=== PATIENT | female | born 1980 | race Caucasian/White ===

== ENCOUNTER 2017-03-06 07:57 | Inpatient (IN) | payer MEDICAID, OTHER ==
[2017-03-06] VITALS (44 sets, daily range): BP systolic 53–116; BP diastolic 23–72
[~2017-03-06] VITALS: Ht 154.9 cm; Wt 55.3 kg
[2017-03-06] MEDS ORDERED: SODIUM CHLORIDE 0.9% 1,000 ML IV ONE (08:13)
[2017-03-06 08:34] LABS: BG BASE EXCESS -5.2 mmol/L (-2.0-2.0); BG CARBOXYHEMOGLOBIN 0.3 % (0.5-1.5); BG DEOXYHEMOGLOBIN 1.3 % (0.0-5.0); BG FRACTION INSPIRED OXYGEN 32; BG HCO3 ACT 14.4 mmol/L (22.0-26.0); BG METHEMOGLOBIN 0.3 % (0.0-1.5); BG OXYGEN SATURATION 98.7 % (92.0-98.5); BG OXYHEMOGLOBIN 98.1 % (94.0-97.0); BG PCO2 17.4 mmHg (35.0-45.0); BG PH 7.537 (7.350-7.450); BG PO2 165.9 mmHg (75.0-100.0); BG SAMPLE SITE RIGHT BRACHIAL; BG TOTAL HEMOGLOBIN 14.2 g/dL (12.0-18.0); BG VENT MODE NASAL CANNULA
[2017-03-06 08:54] LABS: CARBON DIOXIDE 21 mEq/L (21-32); CHLORIDE 67 mEq/L (98-107); ETHANOL BLOOD < 10 mg/dL
[2017-03-06 08:56] LABS: AMMONIA 36 uMol/L (<32)
[2017-03-06] MEDS ORDERED: SODIUM CHLORIDE 3% 500ML IV SOLN IV ONE (09:15)
[2017-03-06 09:23] LABS: HCG SCREEN NEGATIVE
[2017-03-06 09:31] LABS: BASOPHILS % 1.3 % (0.0-2.0); EOSINOPHILS % 1.4 % (0.0-5.0); HEMATOCRIT. 37.9 % (36.0-48.0); HEMOGLOBIN. 13.8 g/dL (12.0-16.0); LYMPHOCYTES % 24.2 % (20.0-50.0); MEAN CORPUSCULAR HEMOGLOBIN 27.6 pg (28.0-32.0); MEAN CORPUSCULAR VOLUME 75.8 fL (81.0-99.0); MEAN PLATELET VOLUME 9.3 fl (7.4-10.4); MONOCYTES % 6.7 % (2.0-8.0); NEUTROPHILS % 66.4 % (40.0-76.0); PLATELET 183 x1000/uL (130-400); RED BLOOD CELL COUNT 5.01 mill/uL (4.2-5.4); RED CELL DISTRIBUTION WIDTH 13.9 % (11.6-14.6)
[2017-03-06] MEDS ORDERED: SODIUM CHLORIDE 3% 500 ML IV ONE (10:30)
[2017-03-06] MEDS ORDERED: INSULIN REGULAR (HUMULIN R) 300UNITS/3ML IV ONE (10:30)
[2017-03-06] MEDS ORDERED: FUROSEMIDE 100MG/10ML VIAL IV STA (10:30)
[2017-03-06] MEDS ORDERED: SODIUM BICARBONATE 8.4% 1 MEQ/ML 50ML SYR IV ONE (10:30)
[2017-03-06] MEDS ORDERED: SODIUM POLYSTYRENE SULFONATE 15 G/60 ML BOT PO ONE (10:30)
[2017-03-06] MEDS ORDERED: DEXTROSE 50% WATER 50ML SYRINGE IV ONE ×3 (10:30→16:45)
[2017-03-06] MEDS ORDERED: ALBUTEROL (0.083%) 2.5MG/3ML NEB HHN ONE (10:30)
[2017-03-06 10:52] LABS: INR 1.3; PROTHROMBIN TIME 13.9 sec (9.4-11.6)
[2017-03-06 11:02] LABS: T4 FREE 2.03 ng/dL (0.76-1.46)
[2017-03-06 11:10] LABS: CLARITY URINE CLEAR (CLEAR); COLOR URINE DARK YELLOW (YELLOW); GLUCOSE URINE NEGATIVE (NEGATIVE); KETONES URINE TRACE (NEGATIVE); LEUKOCYTE ESTERASE URINE NEGATIVE (NEGATIVE); NITRITE URINE NEGATIVE (NEGATIVE); OCCULT BLOOD URINE 2+ (NEGATIVE); PH URINE 5.5 (4.5-8.0); PROTEIN URINE 1+ (NEGATIVE); SPECIFIC GRAVITY URINE 1.024 (1.005-1.030)
[2017-03-06 11:33] LABS: SODIUM URINE RANDOM 28 mEq/L
[2017-03-06 11:42] LABS: *AMPHETAMINES SCREEN URINE NEGATIVE (NEGATIVE); *BARBITURATES SCREEN URINE NEGATIVE (NEGATIVE); *BENZODIAZEPINES SCREEN URINE NEGATIVE (NEGATIVE); *COCAINE SCREEN URINE NEGATIVE (NEGATIVE); CANNABINOID URINE SCREEN NEGATIVE (NEGATIVE); METHADONE URINE SCREEN NEGATIVE (NEGATIVE); OPIATES URINE SCREEN NEGATIVE (NEGATIVE); PHENCYCLIDINE URINE SCREEN NEGATIVE (NEGATIVE)
[2017-03-06] MEDS ORDERED: LORAZEPAM 2MG/ML CPJ IV PRN (12:00)
[2017-03-06] MEDS ORDERED: ONDANSETRON HCL 4MG/2ML VIAL IV PRN (12:00)
[2017-03-06] MEDS ORDERED: IPRATROPIUM/ALBUTEROL 0.5-3(2.5)MG/3ML NEB INH PRN (12:00)
[2017-03-06] MEDS ORDERED: NA PHOS,M-B/NA PHOS,DI-BA ENEMA 118ML PR PRN (12:00)
[2017-03-06] MEDS ORDERED: MAGNESIUM/ALUMINUM HYDROXIDE/SIMETHICONE 30ML UDC PO PRN (12:00)
[2017-03-06] MEDS ORDERED: DOCUSATE SODIUM 100MG CAPSULE PO PRN (12:00)
[2017-03-06] MEDS ORDERED: CLONIDINE 0.1MG TABLET PO PRN (12:00)
[2017-03-06] MEDS ORDERED: ZOLPIDEM TARTRATE 5MG TABLET PO PRN (12:00)
[2017-03-06 12:09] LABS: CREATINE KINASE MB FRACTION 480.1 ng/mL (0.5-3.6)
[2017-03-06] MEDS ORDERED: LIDOCAINE HCL 1% 20ML VIAL (Pyxis) INJ ONE (13:45)
[2017-03-06] MEDS ORDERED: SODIUM BICARBONATE 4% (2.4MEQ) 5ML VIAL IV ONE (13:45)
[2017-03-06] MEDS: HYDRALAZINE HCL 50MG TABLET PO SCH ×2 (14:00→21:02)
[2017-03-06 14:49] LABS: BG BASE EXCESS -2.3 mmol/L (-2.0-2.0); BG CARBOXYHEMOGLOBIN 0.1 % (0.5-1.5); BG DEOXYHEMOGLOBIN 2.6 % (0.0-5.0); BG FRACTION INSPIRED OXYGEN 28; BG HCO3 ACT 19.1 mmol/L (22.0-26.0); BG METHEMOGLOBIN 0.3 % (0.0-1.5); BG OXYGEN SATURATION 97.4 % (92.0-98.5); BG PCO2 24.2 mmHg (35.0-45.0); BG PH 7.515 (7.350-7.450); BG PO2 104.2 mmHg (75.0-100.0); BG SAMPLE SITE RIGHT BRACHIAL; BG TOTAL HEMOGLOBIN 12.2 g/dL (12.0-18.0); BG VENT MODE NASAL CANNULA
[2017-03-06 14:53] LABS: AMYLASE 162 IU/L (25-115); CARBON DIOXIDE 18 mEq/L (21-32); CHLORIDE 74 mEq/L (98-107); PHOSPHORUS 5.3 mg/dL (2.5-4.9)
[2017-03-06 15:02] LABS: HEPATITIS B SURFACE ANTIGEN NEGATIVE
[2017-03-06 15:24] LABS: BASOPHILS % 0.3 % (0.0-2.0); EOSINOPHILS % 0.6 % (0.0-5.0); LYMPHOCYTES % 15.8 % (20.0-50.0); MEAN CORPUSCULAR HEMOGLOBIN 27.5 pg (28.0-32.0); MEAN CORPUSCULAR VOLUME 74.9 fL (81.0-99.0); MEAN PLATELET VOLUME 9.2 fl (7.4-10.4); MONOCYTES % 3.6 % (2.0-8.0); NEUTROPHILS % 79.7 % (40.0-76.0); PLATELET 151 x1000/uL (130-400); RED BLOOD CELL COUNT 5.07 mill/uL (4.2-5.4); RED CELL DISTRIBUTION WIDTH 14.1 % (11.6-14.6)
[2017-03-06 15:30] LABS: HEPATITIS B CORE AB IGM NEGATIVE
[2017-03-06] MEDS ORDERED: SODIUM POLYSTYRENE SULFONATE 15 G/60 ML BOT PO NR (16:15)
[2017-03-06] MEDS ORDERED: SODIUM CHLORIDE 0.9% 500 ML IV NR ×2 (16:15)
[2017-03-06] MEDS ORDERED: SODIUM BICARBONATE 8.4% 1 MEQ/ML 50ML SYR IV NR (16:45)
[2017-03-06] MEDS ORDERED: DEXTROSE 50% WATER 50ML SYRINGE IV PRN (16:45)
[2017-03-06] MEDS ORDERED: INSULIN REGULAR (HUMULIN R) 300UNITS/3ML SUBCUT ONE (16:45)
[2017-03-06] MEDS ORDERED: CALCIUM CHLORIDE 1GM/10ML SYR IV NR (16:45)
[2017-03-06] MEDS ORDERED: INSULIN REGULAR (HUMULIN R) 300UNITS/3ML IV NR (17:00)
[2017-03-06] MEDS ORDERED: SODIUM CHLORIDE 3% 500ML IV SOLN IV NR (18:00)
[2017-03-06] MEDS ORDERED: SODIUM CHLORIDE 3% 500 ML IV NR (18:00)
[2017-03-06] MEDS ORDERED: SODIUM CHLORIDE 23.4% 154 MEQ in DEXT 10% WATER 961.5 ML IV SCH ×3 (18:00)
[2017-03-06] MEDS ORDERED: ALPR-392 PO (18:05)
[2017-03-06] MEDS ORDERED: ONDA4TAB5 PO (18:05)
[2017-03-06] MEDS ORDERED: NOREPINEPHRINE 8 MG in DEXT 5% WATER 242 ML IV PRN (18:30)
[2017-03-06] MEDS ORDERED: ENOXAPARIN 60MG/0.6ML SYR SUBCUT SCH (20:00)
[2017-03-06] MEDS: NOREPINEPHRINE 8 MG in SODIUM CHLORIDE 0.9% 242 ML IV PRN (23:41)
[2017-03-07] VITALS (92 sets, daily range): BP systolic 75–124; BP diastolic 34–89
[2017-03-07] MEDS ORDERED: DEXTROSE 5% WATER 1,000 ML IV SCH (00:15)
[2017-03-07] MEDS: PHENYLEPHRINE 20 MG in DEXT 5% WATER 248 ML IV PRN ×2 (01:59→04:45)
[2017-03-07] MEDS: NOREPINEPHRINE 8 MG in SODIUM CHLORIDE 0.9% 242 ML IV PRN ×3 (04:04→13:50)
[2017-03-07] MEDS: HYDRALAZINE HCL 50MG TABLET PO SCH ×3 (06:00→22:00)
[2017-03-07] MEDS: PHENYLEPHRINE 40 MG in DEXT 5% WATER 246 ML IV PRN ×3 (07:07→13:41)
[2017-03-07 07:19] LABS: AMMONIA 65 uMol/L (<32)
[2017-03-07 07:43] LABS: BG BASE EXCESS -6.1 mmol/L (-2.0-2.0); BG CARBOXYHEMOGLOBIN 0.8 % (0.5-1.5); BG DEOXYHEMOGLOBIN 1.2 % (0.0-5.0); BG FRACTION INSPIRED OXYGEN 32; BG HCO3 ACT 15.7 mmol/L (22.0-26.0); BG METHEMOGLOBIN 0.2 % (0.0-1.5); BG OXYGEN SATURATION 98.8 % (92.0-98.5); BG OXYHEMOGLOBIN 97.8 % (94.0-97.0); BG PCO2 22.8 mmHg (35.0-45.0); BG PH 7.456 (7.350-7.450); BG PO2 148.2 mmHg (75.0-100.0); BG SAMPLE SITE LEFT BRACHIAL; BG TOTAL HEMOGLOBIN 13.9 g/dL (12.0-18.0); BG VENT MODE NASAL CANNULA
[2017-03-07 07:43] LABS: CARBON DIOXIDE 15 mEq/L (21-32); CHLORIDE 89 mEq/L (98-107); PHOSPHORUS 2.4 mg/dL (2.5-4.9)
[2017-03-07 07:47] LABS: INR 2.1; PARTIAL THROMBOPLASTIN TIME 40.1 sec (23.4-31.0); PROTHROMBIN TIME 21.8 sec (9.4-11.6)
[2017-03-07] MEDS ORDERED: VASOPRESSIN 10 UNIT in SODIUM CHLORIDE 0.9% 99.5 ML IV SCH (09:00)
[2017-03-07 09:04] LABS: BASOPHILS % 0.5 % (0.0-2.0); EOSINOPHILS % 0.6 % (0.0-5.0); HEMATOCRIT. 38.6 % (36.0-48.0); HEMOGLOBIN. 13.7 g/dL (12.0-16.0); LYMPHOCYTES % 10.8 % (20.0-50.0); MEAN CORPUSCULAR HEMOGLOBIN 27.7 pg (28.0-32.0); MEAN CORPUSCULAR VOLUME 78.2 fL (81.0-99.0); MEAN PLATELET VOLUME 9.6 fl (7.4-10.4); NEUTROPHILS % 84.1 % (40.0-76.0); PLATELET 139 x1000/uL (130-400); RED BLOOD CELL COUNT 4.94 mill/uL (4.2-5.4); RED CELL DISTRIBUTION WIDTH 14.3 % (11.6-14.6)
[2017-03-07] MEDS: EPINEPHRINE 1 MG in SODIUM CHLORIDE 0.9% 249 ML IV PRN ×3 (09:10→16:40)
[2017-03-07] MEDS: DEXT 5%/0.9% NACL 1,000 ML IV SCH (09:15)
[2017-03-07] MEDS ORDERED: LACTULOSE 20G/30ML UDC PO PRN (09:30)
[2017-03-07] MEDS ORDERED: COSYNTROPIN 0.25MG/ML VIAL IV NR (10:30)
[2017-03-07] MEDS ORDERED: MAGNESIUM 2 G PREMIX 50 ML IV NR (10:30)
[2017-03-07] MEDS: CITRIC ACID/SODIUM CITRATE SOLN 30ML UDC PO SCH ×2 (10:58→17:05)
[2017-03-07] MEDS: FAMOTIDINE 20MG/2ML VIAL IV SCH (10:59)
[2017-03-07] MEDS ORDERED: VANCOMYCIN 1 G PREMIX 200 ML IV SCH ×2 (12:00→14:00)
[2017-03-07] MEDS: PIPERACILLIN/TAZ 3.375G PREMIX 50 ML IV SCH ×3 (12:01→22:33)
[2017-03-07 12:58] LABS: CREATINE KINASE MB FRACTION 55.7 ng/mL (0.5-3.6)
[2017-03-07 13:01] LABS: TROPONIN I 0.43 ng/mL (0.00-0.04)
[2017-03-07] MEDS: LACTULOSE 20G/30ML UDC PO SCH ×2 (13:52→22:28)
[2017-03-07] MEDS: HYDROCORTISONE SOD SUCCINATE 100 MG/2 ML VIAL IV SCH ×2 (13:52→22:28)
[2017-03-07 15:07] LABS: INR 2.9; PROTHROMBIN TIME 30.3 sec (9.4-11.6)
[2017-03-07 15:28] LABS: HEPATITIS A AB IGM NEGATIVE (NEGATIVE)
[2017-03-07] MEDS ORDERED: PHENYLEPHRINE 80 MG in SODIUM CHLORIDE 0.9% 500 ML IV PRN (15:30)
[2017-03-07] MEDS ORDERED: PHENYLEPHRINE 80 MG in SODIUM CHLORIDE 0.9% 492 ML IV PRN (15:45)
[2017-03-07] MEDS ORDERED: SODIUM CHLORIDE 0.9% IV PRN (16:45)
[2017-03-07] MEDS ORDERED: NOREPINEPHRINE IV PRN (16:45)
[2017-03-07] MEDS ORDERED: NOREPINEPHRINE 32 MG in SODIUM CHLORIDE 0.9% 468 ML IV PRN (17:00)
[2017-03-08] VITALS (70 sets, daily range): BP systolic 94–159; BP diastolic 34–99
[2017-03-08] MEDS ORDERED: VANCOMYCIN 750 MG PREMIX 150 ML IV SCH ×2 (02:00)
[2017-03-08] MEDS: DEXT 5%/0.9% NACL 1,000 ML IV SCH ×2 (03:01→17:57)
[2017-03-08] MEDS: PIPERACILLIN/TAZ 3.375G PREMIX 50 ML IV SCH ×3 (05:30→17:56)
[2017-03-08] MEDS: HYDRALAZINE HCL 50MG TABLET PO SCH (05:31)
[2017-03-08 05:58] LABS: HEMATOCRIT. 38.3 % (36.0-48.0); HEMOGLOBIN. 13.1 g/dL (12.0-16.0); MEAN CORPUSCULAR HEMOGLOBIN 27.2 pg (28.0-32.0); MEAN CORPUSCULAR VOLUME 79.4 fL (81.0-99.0); PLATELET 94 x1000/uL (130-400); RED BLOOD CELL COUNT 4.82 mill/uL (4.2-5.4); RED CELL DISTRIBUTION WIDTH 14.4 % (11.6-14.6)
[2017-03-08] MEDS: LACTULOSE 20G/30ML UDC PO SCH (06:36)
[2017-03-08] MEDS: HYDROCORTISONE SOD SUCCINATE 100 MG/2 ML VIAL IV SCH ×3 (07:54→21:45)
[2017-03-08] MEDS: FAMOTIDINE 20MG/2ML VIAL IV SCH (09:36)
[2017-03-08] MEDS ORDERED: KCL 20MEQ/100ML PREMIX 100 ML IV SCH (10:00)
[2017-03-08 10:42] LABS: PLATELET ESTIMATE DECREASED
[2017-03-08 11:39] LABS: PROTHROMBIN TIME 20.9 sec (9.4-11.6)
[2017-03-08] MEDS: CITRIC ACID/SODIUM CITRATE SOLN 30ML UDC PO SCH ×2 (11:44→17:56)
[2017-03-08 12:34] LABS: AMMONIA 13 uMol/L (<32)
[2017-03-08] MEDS: VANCOMYCIN 500 MG PREMIX 100 ML IV SCH ×2 (14:37→21:41)
[2017-03-09] VITALS (47 sets, daily range): BP systolic 92–144; BP diastolic 54–82
[2017-03-09] MEDS: PIPERACILLIN/TAZ 3.375G PREMIX 50 ML IV SCH ×5 (00:12→23:44)
[2017-03-09] MEDS: HYDROCORTISONE SOD SUCCINATE 100 MG/2 ML VIAL IV SCH ×3 (05:13→21:35)
[2017-03-09] MEDS: VANCOMYCIN 500 MG PREMIX 100 ML IV SCH ×3 (05:13→21:35)
[2017-03-09 06:31] LABS: AMMONIA 47 uMol/L (<32)
[2017-03-09 06:41] LABS: CARBON DIOXIDE 21 mEq/L (21-32); CHLORIDE 98 mEq/L (98-107); PHOSPHORUS 1.3 mg/dL (2.5-4.9)
[2017-03-09 07:29] LABS: HEMATOCRIT. 24.5 % (36.0-48.0); HEMOGLOBIN. 8.8 g/dL (12.0-16.0); MEAN CORPUSCULAR VOLUME 78.2 fL (81.0-99.0); MEAN PLATELET VOLUME 8.9 fl (7.4-10.4); RED BLOOD CELL COUNT 3.13 mill/uL (4.2-5.4)
[2017-03-09 07:57] LABS: PLATELET 39 x1000/uL (130-400)
[2017-03-09] MEDS ORDERED: POTASSIUM ACETATE 40 MEQ in SODIUM CHLORIDE 0.9% 1,000 ML IV SCH (08:15)
[2017-03-09] MEDS ORDERED: POTASSIUM CHLORIDE 20MEQ/PACKET PO SCH (08:15)
[2017-03-09] MEDS: CITRIC ACID/SODIUM CITRATE SOLN 30ML UDC PO SCH (08:30)
[2017-03-09] MEDS: FAMOTIDINE 20MG/2ML VIAL IV SCH (08:34)
[2017-03-09 09:21] LABS: HEMATOCRIT. 24.9 % (36.0-48.0); HEMOGLOBIN. 8.9 g/dL (12.0-16.0); MEAN CORPUSCULAR HEMOGLOBIN 27.7 pg (28.0-32.0); MEAN CORPUSCULAR VOLUME 77.8 fL (81.0-99.0); MEAN PLATELET VOLUME 8.7 fl (7.4-10.4); RED CELL DISTRIBUTION WIDTH 14.4 % (11.6-14.6)
[2017-03-09 09:24] LABS: PLATELET 42 x1000/uL (130-400)
[2017-03-09] MEDS ORDERED: POTASSIUM PHOS,M-BASIC-D-BASIC 30 MMOL in SODIUM CHLORIDE 0.9% 500 ML IV SCH (09:30)
[2017-03-09 10:20] LABS: PLATELET ESTIMATE MARKEDLY DECREASED
[2017-03-09 10:23] LABS: PLATELET ESTIMATE MARKEDLY DECREASED
[2017-03-09] MEDS: POTASSIUM CHLORIDE INJ 40 MEQ in SODIUM CHLORIDE 0.9% 1,000 ML IV SCH (10:27)
[2017-03-09] MEDS: LACTULOSE 20G/30ML UDC PO SCH (11:31)
[2017-03-09 12:17] LABS: INR 1.2
[2017-03-09 15:32] LABS: HEMATOCRIT. 26.7 % (36.0-48.0); HEMOGLOBIN. 9.2 g/dL (12.0-16.0); MEAN CORPUSCULAR HEMOGLOBIN 27.4 pg (28.0-32.0); MEAN CORPUSCULAR VOLUME 80.1 fL (81.0-99.0); RED BLOOD CELL COUNT 3.34 mill/uL (4.2-5.4); RED CELL DISTRIBUTION WIDTH 14.5 % (11.6-14.6)
[2017-03-09 15:35] LABS: PLATELET 41 x1000/uL (130-400)
[2017-03-09 16:03] LABS: PLATELET ESTIMATE MARKEDLY DECREASED
[2017-03-09] MEDS ORDERED: TUBERCULIN,PURIF.PROT.DERIV. 5 TU/0.1 ML SYR ID ONE (23:00)
[2017-03-10] VITALS (31 sets, daily range): BP systolic 87–138; BP diastolic 56–88
[2017-03-10] MEDS: POTASSIUM CHLORIDE INJ 40 MEQ in SODIUM CHLORIDE 0.9% 1,000 ML IV SCH ×2 (04:15→17:23)
[2017-03-10] MEDS: VANCOMYCIN 500 MG PREMIX 100 ML IV SCH ×3 (05:12→21:12)
[2017-03-10] MEDS: HYDROCORTISONE SOD SUCCINATE 100 MG/2 ML VIAL IV SCH ×3 (05:12→21:12)
[2017-03-10] MEDS: PIPERACILLIN/TAZ 3.375G PREMIX 50 ML IV SCH ×4 (05:12→23:37)
[2017-03-10 05:43] LABS: HEMATOCRIT. 26.2 % (36.0-48.0); HEMOGLOBIN. 8.9 g/dL (12.0-16.0); LYMPHOCYTES % 7.9 % (20.0-50.0); MEAN CORPUSCULAR HEMOGLOBIN 27.1 pg (28.0-32.0); MONOCYTES % 3.3 % (2.0-8.0); NEUTROPHILS % 88.8 % (40.0-76.0); RED BLOOD CELL COUNT 3.27 mill/uL (4.2-5.4); RED CELL DISTRIBUTION WIDTH 14.4 % (11.6-14.6)
[2017-03-10 05:58] LABS: CARBON DIOXIDE 22 mEq/L (21-32); CHLORIDE 105 mEq/L (98-107); HAPTOGLOBIN 239 mg/dL (30-200); PHOSPHORUS 1.2 mg/dL (2.5-4.9); T4 FREE 1.36 ng/dL (0.76-1.46)
[2017-03-10 07:43] LABS: PLATELET 38 x1000/uL (130-400); PLATELET ESTIMATE MARKEDLY DECREASED
[2017-03-10] MEDS: LACTULOSE 20G/30ML UDC PO SCH (09:46)
[2017-03-10] MEDS: FAMOTIDINE 20MG/2ML VIAL IV SCH (09:46)
[2017-03-10] MEDS ORDERED: MAGNESIUM 4 G PREMIX 100 ML IV SCH (10:00)
[2017-03-10] MEDS ORDERED: POTASSIUM PHOS,M-BASIC-D-BASIC 30 MMOL in SODIUM CHLORIDE 0.9% 500 ML IV SCH (10:00)
[2017-03-10 10:29] LABS: AMMONIA 53 uMol/L (<32)
[2017-03-11] VITALS (14 sets, daily range): BP systolic 98–127; BP diastolic 61–92
[2017-03-11 04:42] LABS: BASOPHILS % 0.1 % (0.0-2.0); HEMATOCRIT. 25.2 % (36.0-48.0); HEMOGLOBIN. 8.7 g/dL (12.0-16.0); LYMPHOCYTES % 10.4 % (20.0-50.0); MEAN CORPUSCULAR HEMOGLOBIN 27.7 pg (28.0-32.0); MEAN CORPUSCULAR VOLUME 79.9 fL (81.0-99.0); MEAN PLATELET VOLUME 9.6 fl (7.4-10.4); MONOCYTES % 5.7 % (2.0-8.0); NEUTROPHILS % 83.8 % (40.0-76.0); RED BLOOD CELL COUNT 3.16 mill/uL (4.2-5.4); RED CELL DISTRIBUTION WIDTH 14.6 % (11.6-14.6)
[2017-03-11 04:44] LABS: AMMONIA 63 uMol/L (<32)
[2017-03-11 04:45] LABS: CARBON DIOXIDE 22 mEq/L (21-32); CHLORIDE 106 mEq/L (98-107); PHOSPHORUS 1.7 mg/dL (2.5-4.9)
[2017-03-11] MEDS: PIPERACILLIN/TAZ 3.375G PREMIX 50 ML IV SCH ×2 (05:06→12:04)
[2017-03-11 05:13] LABS: PLATELET 42 x1000/uL (130-400)
[2017-03-11] MEDS: HYDROCORTISONE SOD SUCCINATE 100 MG/2 ML VIAL IV SCH ×2 (06:24→18:59)
[2017-03-11] MEDS: VANCOMYCIN 500 MG PREMIX 100 ML IV SCH (06:24)
[2017-03-11] MEDS: POTASSIUM CHLORIDE INJ 40 MEQ in SODIUM CHLORIDE 0.9% 1,000 ML IV SCH (08:55)
[2017-03-11] MEDS: FAMOTIDINE 20MG/2ML VIAL IV SCH (08:57)
[2017-03-11] MEDS: LACTULOSE 20G/30ML UDC PO SCH (08:57)
[2017-03-11] MEDS ORDERED: PANTOPRAZOLE SODIUM 40 MG/VIAL IV NR (13:00)
[2017-03-11] MEDS ORDERED: POTASSIUM PHOS,M-BASIC-D-BASIC 10 MMOL in DEXT 5% WATER 246.6667 ML IV NR (13:00)
[2017-03-11 14:00] LABS: HEMATOCRIT 25.9 % (36.0-48.0); HEMOGLOBIN 8.8 g/dL (12.0-16.0); MEAN CORPUSCULAR HEMOGLOBIN 27.4 pg (28.0-32.0); MEAN CORPUSCULAR VOLUME 80.4 fL (81.0-99.0); RED BLOOD CELL COUNT 3.22 mill/uL (4.2-5.4); RED CELL DISTRIBUTION WIDTH 14.9 % (11.6-14.6)
[2017-03-11 14:12] LABS: PLATELET 50 x1000/uL (130-400)
[2017-03-11] MEDS ORDERED: VANCOMYCIN 1 G PREMIX 200 ML IV SCH (18:00)
[2017-03-12] VITALS (16 sets, daily range): BP systolic 91–125; BP diastolic 41–84
[2017-03-12] MEDS: POTASSIUM CHLORIDE INJ 40 MEQ in SODIUM CHLORIDE 0.9% 1,000 ML IV SCH ×3 (00:30→16:00)
[2017-03-12] MEDS: HYDROCORTISONE SOD SUCCINATE 100 MG/2 ML VIAL IV SCH (05:59)
[2017-03-12 07:54] LABS: AMMONIA 80 uMol/L (<32)
[2017-03-12] MEDS: LACTULOSE 20G/30ML UDC PO SCH ×2 (08:01→18:08)
[2017-03-12] MEDS: PANTOPRAZOLE SODIUM 40 MG/VIAL IV SCH (08:01)
[2017-03-12 08:11] LABS: BASOPHILS % 0.1 % (0.0-2.0); EOSINOPHILS % 0.4 % (0.0-5.0); HEMATOCRIT. 24.7 % (36.0-48.0); HEMOGLOBIN. 8.4 g/dL (12.0-16.0); LYMPHOCYTES % 22.7 % (20.0-50.0); MEAN CORPUSCULAR HEMOGLOBIN 27.5 pg (28.0-32.0); MEAN CORPUSCULAR VOLUME 80.4 fL (81.0-99.0); NEUTROPHILS % 64.8 % (40.0-76.0); PLATELET 64 x1000/uL (130-400); RED BLOOD CELL COUNT 3.07 mill/uL (4.2-5.4); RED CELL DISTRIBUTION WIDTH 14.8 % (11.6-14.6)
[2017-03-12 08:28] LABS: CARBON DIOXIDE 24 mEq/L (21-32); CHLORIDE 107 mEq/L (98-107); CREATINE KINASE 278 IU/L (26-192)
[2017-03-12] MEDS ORDERED: POTASSIUM PHOS,M-BASIC-D-BASIC 15 MMOL in DEXT 5% WATER 245 ML IV SCH (13:00)
[2017-03-12 14:15] LABS: QFT MITOGEN VALUE 0.25 IU/mL (.); QFT TB AG MINUS NIL VALUE 0.08 IU/mL (.); QFT TB GOLD Indeterminate (Negative)
[2017-03-12] MEDS ORDERED: POTASSIUM PHOS,M-BASIC-D-BASIC 30 MMOL in SODIUM CHLORIDE 0.9% 500 ML IV NR (17:00)
[2017-03-12] MEDS ORDERED: HYDROCORTISONE SOD SUCCINATE 100 MG/2 ML VIAL IV SCH (18:00)
[2017-03-12] MEDS ORDERED: POTASSIUM PHOS,M-BASIC-D-BASIC 15 MMOL in DEXT 5% WATER 245 ML IV NR (20:00)
[2017-03-13] VITALS (22 sets, daily range): BP systolic 96–123; BP diastolic 57–88
[2017-03-13] MEDS: HYDROCORTISONE SOD SUCCINATE 100 MG/2 ML VIAL IV SCH (06:37)
[2017-03-13 06:41] LABS: INR 1.3; PARTIAL THROMBOPLASTIN TIME 21.9 sec (23.4-31.0); PROTHROMBIN TIME 13.7 sec (9.4-11.6)
[2017-03-13] MEDS: POTASSIUM CHLORIDE INJ 40 MEQ in SODIUM CHLORIDE 0.9% 1,000 ML IV SCH ×2 (06:42→23:55)
[2017-03-13 07:15] LABS: AMMONIA 50 uMol/L (<32)
[2017-03-13 07:26] LABS: CARBON DIOXIDE 26 mEq/L (21-32); CHLORIDE 109 mEq/L (98-107); PHOSPHORUS 2.6 mg/dL (2.5-4.9)
[2017-03-13 07:46] LABS: BASOPHILS % 0.1 % (0.0-2.0); EOSINOPHILS % 1.9 % (0.0-5.0); HEMOGLOBIN. 8.2 g/dL (12.0-16.0); LYMPHOCYTES % 28.5 % (20.0-50.0); MEAN CORPUSCULAR HEMOGLOBIN 27.8 pg (28.0-32.0); MEAN CORPUSCULAR VOLUME 81.4 fL (81.0-99.0); MONOCYTES % 11.7 % (2.0-8.0); NEUTROPHILS % 57.8 % (40.0-76.0); PLATELET 117 x1000/uL (130-400); RED BLOOD CELL COUNT 2.95 mill/uL (4.2-5.4); RED CELL DISTRIBUTION WIDTH 14.6 % (11.6-14.6)
[2017-03-13] MEDS: LACTULOSE 20G/30ML UDC PO SCH ×2 (09:00→09:15)
[2017-03-13] MEDS: PANTOPRAZOLE SODIUM 40 MG/VIAL IV SCH (09:15)
[2017-03-13] MEDS: DIPHENHYDRAMINE 50MG/ML VIAL IV PRN ×2 (10:23→19:45)
[2017-03-13] MEDS: POTASSIUM CHLORIDE 20MEQ TABLET SR PO SCH (12:27)
[2017-03-13] MEDS ORDERED: MAGNESIUM 4 G PREMIX 100 ML IV SCH (13:00)
[2017-03-13] MEDS ORDERED: CEFAZOLIN 1000MG PREMIX 50 ML IV ONE ×2 (13:11→13:45)
[2017-03-13] MEDS ORDERED: LIDOCAINE HCL 1% 20ML VIAL (Pyxis) INJ ONE (13:11)
[2017-03-13] MEDS ORDERED: SODIUM BICARBONATE 4% (2.4MEQ) 5ML VIAL IV ONE (13:11)
[2017-03-13] MEDS ORDERED: IOHEXOL-300 100 ML BOTTLE ONE (13:14)
[2017-03-13] MEDS: VENLAFAXINE HCL 37.5MG TABLET PO SCH (15:08)
[2017-03-13] MEDS: FLUDROCORTISONE ACETATE 0.1MG TABLET PO SCH (15:12)
[2017-03-13] MEDS: HYDROCORTISONE 20MG TABLET PO SCH (17:25)
[2017-03-13] MEDS: ACETAMINOPHEN 325MG TABLET PO PRN (19:45)
[2017-03-14] VITALS (11 sets, daily range): BP systolic 103–120; BP diastolic 56–85
[2017-03-14] MEDS: ACETAMINOPHEN 325MG TABLET PO PRN (02:06)
[2017-03-14] MEDS: DIPHENHYDRAMINE 50MG/ML VIAL IV PRN (02:11)
[2017-03-14] MEDS: HYDROCORTISONE 20MG TABLET PO SCH ×2 (06:34→17:56)
[2017-03-14 07:21] LABS: AMMONIA 35 uMol/L (<32)
[2017-03-14 07:49] LABS: BASOPHILS % 0.1 % (0.0-2.0); EOSINOPHILS % 2.1 % (0.0-5.0); HEMATOCRIT. 24.3 % (36.0-48.0); HEMOGLOBIN. 8.2 g/dL (12.0-16.0); MEAN CORPUSCULAR HEMOGLOBIN 27.7 pg (28.0-32.0); MEAN CORPUSCULAR VOLUME 81.6 fL (81.0-99.0); MEAN PLATELET VOLUME 8.8 fl (7.4-10.4); MONOCYTES % 12.6 % (2.0-8.0); NEUTROPHILS % 51.2 % (40.0-76.0); PLATELET 147 x1000/uL (130-400); RED BLOOD CELL COUNT 2.98 mill/uL (4.2-5.4); RED CELL DISTRIBUTION WIDTH 14.5 % (11.6-14.6)
[2017-03-14 07:55] LABS: CARBON DIOXIDE 29 mEq/L (21-32); CHLORIDE 107 mEq/L (98-107); PHOSPHORUS 2.5 mg/dL (2.5-4.9); TOTAL IRON BINDING CAPACITY 200 ug/dL (250-450)
[2017-03-14] MEDS: POTASSIUM CHLORIDE 20MEQ TABLET SR PO SCH (09:13)
[2017-03-14] MEDS: LACTULOSE 20G/30ML UDC PO SCH ×2 (09:13→17:47)
[2017-03-14] MEDS: PANTOPRAZOLE SODIUM 40 MG/VIAL IV SCH (09:13)
[2017-03-14] MEDS: VENLAFAXINE HCL 37.5MG TABLET PO SCH (09:13)
[2017-03-14] MEDS: FLUDROCORTISONE ACETATE 0.1MG TABLET PO SCH (09:13)
[2017-03-14] MEDS: FERROUS SULFATE 325MG TABLET PO SCH ×2 (12:32→17:47)
[2017-03-14] MEDS: POTASSIUM CHLORIDE INJ 40 MEQ in SODIUM CHLORIDE 0.9% 1,000 ML IV SCH (15:10)
[2017-03-14] MEDS ORDERED: ASCORBIC ACID 500 MG TABLET PO SCH (21:00)
== END 2017-03-14 18:00 | disposition home or self-care (01) | DRG 720 ==
LOC: ER 08:08 → CVICU 10:32 → EDBEDREQ 10:34 → EDBEDREQSVC 10:34 → EDBEDREQTM 10:34 → ENRESERV 11:05 → 3WST 03-11 01:39
PROVIDERS: ADMIT Internal Medicine; ATTEND Internal Medicine
PROC: 02HV33Z Insertion of Infusion Device into Superior Vena Cava, Percutaneous Approach (ICD-10-PCS; principal; 2017-03-06)
PROC: B5181ZA Fluoroscopy of Superior Vena Cava using Low Osmolar Contrast, Guidance (ICD-10-PCS; 2017-03-06)
PROC: B548ZZA Ultrasonography of Superior Vena Cava, Guidance (ICD-10-PCS; 2017-03-06)
PROC: 06H03DZ Insertion of Intraluminal Device into Inferior Vena Cava, Percutaneous Approach (ICD-10-PCS; 2017-03-13)
PROC: B549ZZA Ultrasonography of Inferior Vena Cava, Guidance (ICD-10-PCS; 2017-03-13)
PROC: B5191ZA Fluoroscopy of Inferior Vena Cava using Low Osmolar Contrast, Guidance (ICD-10-PCS; 2017-03-13)
DX: A41.9 Sepsis, unspecified organism (principal); K72.00 Acute and subacute hepatic failure without coma; J96.00 Acute respiratory failure, unspecified whether with hypoxia or hypercapnia; D65 Disseminated intravascular coagulation [defibrination syndrome]; I63.9 Cerebral infarction, unspecified; E87.3 Alkalosis; E72.20 Disorder of urea cycle metabolism, unspecified; D61.818 Other pancytopenia; E43 Unspecified severe protein-calorie malnutrition; N17.0 Acute kidney failure with tubular necrosis; K85.90 Acute pancreatitis without necrosis or infection, unspecified; R57.9 Shock, unspecified; E27.40 Unspecified adrenocortical insufficiency; M62.82 Rhabdomyolysis; G92 Toxic encephalopathy; E05.90 Thyrotoxicosis, unspecified without thyrotoxic crisis or storm; E83.51 Hypocalcemia; E87.1 Hypo-osmolality and hyponatremia; E87.5 Hyperkalemia; I82.411 Acute embolism and thrombosis of right femoral vein; D50.9 Iron deficiency anemia, unspecified; E03.9 Hypothyroidism, unspecified; E11.65 Type 2 diabetes mellitus with hyperglycemia; E27.1 Primary adrenocortical insufficiency; E83.39 Other disorders of phosphorus metabolism; E83.42 Hypomagnesemia; E86.0 Dehydration; E86.1 Hypovolemia; E87.0 Hyperosmolality and hypernatremia; E87.6 Hypokalemia; E87.8 Other disorders of electrolyte and fluid balance, not elsewhere classified; F32.9 Major depressive disorder, single episode, unspecified; M06.9 Rheumatoid arthritis, unspecified; F41.0 Panic disorder [episodic paroxysmal anxiety]; K82.4 Cholesterolosis of gallbladder; R29.6 Repeated falls; T73.0XXA Starvation, initial encounter; Z68.23 Body mass index [BMI] 23.0-23.9, adult; W19.XXXA Unspecified fall, initial encounter; E88.09 Other disorders of plasma-protein metabolism, not elsewhere classified; X58.XXXA Exposure to other specified factors, initial encounter; Y92.89 Other specified places as the place of occurrence of the external cause; Y99.8 Other external cause status; Y93.89 Activity, other specified
CPT/HCPCS: 36415; 36569; 36600; 37191; 51702; 70450; 70551; 71010; 74000; 76700; 76937; 80048; 80053; 80076; 80202; 80305; 80307; 80329; 81001; 82088; 82140; 82150; 82248; 82375; 82533; 82550; 82553; 82570; 82728; 82805; 82962; 83010; 83036; 83520; 83540; 83550; 83615; 83690; 83735; 83930; 84100; 84134; 84244; 84295; 84300; 84439; 84443; 84481; 84484; 84550; 84703; 85007; 85025; 85027; 85379; 85384; 85610; 85730; 86022; 86480; 86705; 86709; 86803; 87040; 87186; 87340; 90585; 92523; 92610; 93005; 93306; 93970; 94664; 96361; 96374; 96375; 97110; 97116; 97162; 97167; 97530; 97535; 99291; C1725; C1769; C1880; C9113; G0482; J0171; J0690; J0834; J1200; J1644; J1650; J1720; J1815; J2370; J2405; J2543; J3370; J3475; J3480; J3490; J7030; J7040; J7042; J7050; J7060; J7070; J7131; J7620; Q9967; A4315